=== PATIENT | female | born 1990 | race Caucasian/White ===

== ENCOUNTER 2016-10-23 14:49 | Emergency (ER) | payer SELFPAY ==
[~2016-10-23] VITALS: Ht 162.6 cm; Wt 81.6 kg
[2016-10-23 15:18] VITALS: BP_SYST 129
== END 2016-10-23 16:30 | disposition home or self-care (01) ==
LOC: SED 16:21
DX: H00.015 Hordeolum externum left lower eyelid (principal)
CPT/HCPCS: 99283